=== PATIENT | male | born 1995 | race Caucasian/White ===

== ENCOUNTER → 2016-07-11 | Day surgery (SDC) | payer OTHER ==
[~2016-07-11] MED LIST: LORTAB 5-325 M1 EACH PO
[2016-07-11 08:25] LABS: BUN/CREATININE RATIO 27 (0-10)
== END | disposition home or self-care (01) ==
LOC: OR 07:07
PROVIDERS: Orthopaedic Surgery
PROC: 0X6P0Z3 Detachment at Left Index Finger, Low, Open Approach (ICD-10-PCS; principal; 2016-07-11 13:15)
DX: S68.121A Partial traumatic metacarpophalangeal amputation of left index finger, initial encounter (principal); S67.191A Crushing injury of left index finger, initial encounter; Z79.891 Long term (current) use of opiate analgesic
CPT/HCPCS: 36415; 80048; J0690; J1100; J2250; J2405; J2765; J3010; J7120

== ENCOUNTER 2020-04-20 18:59 | Emergency (ER) | payer OTHER ==
[2020-04-20] MEDS ORDERED: BACTRIM 400-801 EACH PO (19:28)
[2020-04-21] MEDS ORDERED: KEFLEX CAP 500500 MG PO (03:05)
[2020-04-21] MEDS ORDERED: PERCOCET 5/325 T1 EA PO (03:06)
== END 2020-04-20 19:43 | disposition home or self-care (01) ==
LOC: ER1 18:59
DX: K13.0 Diseases of lips (principal)
CPT/HCPCS: 99283

== ENCOUNTER 2020-04-21 01:19 | Emergency (ER) | payer OTHER ==
[~2020-04-21 01:19] MED LIST changes: +BACTRIM 400-801 EACH PO
[2020-04-21] MEDS ORDERED: KEFLEX CAP 500500 MG PO (03:05)
[2020-04-21] MEDS ORDERED: PERCOCET 5/325 T1 EA PO (03:06)
== END 2020-04-21 03:20 | disposition home or self-care (01) ==
LOC: ER1 01:19
DX: K13.0 Diseases of lips (principal); L02.01 Cutaneous abscess of face; L03.211 Cellulitis of face
CPT/HCPCS: 87070; 87077; 87186; 87205; 99283

== ENCOUNTER 2022-01-09 17:52 | Emergency (ER) | payer SELFPAY ==
[~2022-01-09 17:52] MED LIST changes: +KEFLEX CAP 500500 MG PO; +PERCOCET 5/325 T1 EA PO
[2022-01-09 18:36] LABS: HEMOGLOBIN 15.7 gm/dl (14.0-17.5); RED BLOOD COUNT 5.27 M/UL (4.20-5.50)
[2022-01-09 18:57] LABS: BUN/CREATININE RATIO 14 (0-10)
[2022-01-09] MEDS ORDERED: ZOFRAN 4 MG TAB4 MG PO (21:17)
[2022-01-09] MEDS ORDERED: AMOX TR-K CLV1 EAC4 PO (21:17)
== END 2022-01-09 22:05 | disposition home or self-care (01) ==
LOC: ER1 17:52
PROVIDERS: Emergency Medicine
DX: K52.9 Noninfective gastroenteritis and colitis, unspecified (principal); K21.9 Gastro-esophageal reflux disease without esophagitis; F17.290 Nicotine dependence, other tobacco product, uncomplicated; Z20.822 Contact with and (suspected) exposure to COVID-19
CPT/HCPCS: 80053; 81001; 83690; 85025; 96361; 96374; 96375; 99284; J2270; J2405; Q9967; U0002